=== PATIENT | female | born 1990 ===

== ENCOUNTER 2017-11-17 09:29 | Emergency (ER) | payer OTHER ==
[2017-11-17] MEDS ORDERED: Al Hydrox/Mg Hydrox/Simet LIQ* 30 ML UDC PO ONE (10:00)
[2017-11-17] MEDS ORDERED: Lidocaine 2% VISCOUS* 15 ML UDC PO ONE (10:00)
--- NOTE | 2017-11-17 10:01 | UC ---
Cardiac HPI - HPI Summary HPI Summary: Patient c/o chest heaviness over the past several days---feels this may be related to running out of Albuterol MDI or acid reflux, ---has used TUMS with some relief - History of Current Complaint Chief Complaint: UCChestPain Stated Complaint: chest pain Time Seen by Provider: 11/17/17 09:32 Hx Obtained From: Patient Hx Last Menstrual Period: 11/04/17 Onset/Duration: Gradual Onset, Lasting Days, Still Present Timing: Constant Current Severity: Mild Chest Pain Location: Mid Sternal Aggravating Factor(s): Nothing Alleviating Factor(s): Other - tums with some relief Associated Signs & Symptoms: Positive: Negative - Allergy/Home Medications Allergies/Adverse Reactions: Allergies Allergy/AdvReac Type Severity Reaction Status Date / Time No Known Allergies Allergy Verified 11/17/17 09:50 PMH/Surg Hx/FS Hx/Imm Hx Previously Healthy: No Endocrine History: Dyslipidemia - Surgical History Surgical History: None - Family History Known Family History: Positive: Cardiac Disease, Other - dyslipidemia - Social History Occupation: Employed Full-time Lives: With Family Alcohol Use: Occasionally Substance Use Type: None Smoking Status (MU): Never Smoked Tobacco Review of Systems Constitutional: Negative Skin: Negative Eyes: Negative ENT: Negative Respiratory: Negative Cardiovascular: Chest Pain Gastrointestinal: Negative Genitourinary: Negative Motor: Negative Neurovascular: Negative Musculoskeletal: Negative Neurological: Negative Psychological: Negative Is Patient Immunocompromised?: No All Other Systems Reviewed And Are Negative: Yes Physical Exam Triage Information Reviewed: Yes Appearance: Well-Appearing, No Pain Distress, Well-Nourished Vital Signs: Initial Vital Signs Temp 98.6 F 11/17/17 09:51 Pulse 76 11/17/17 09:51 Resp 18 11/17/17 09:51 BP 124/80 11/17/17 09:51 Pulse Ox 100 11/17/17 09:51 Vital Signs Reviewed: Yes Eye Exam: Normal Eyes: Positive: Conjunctiva Clear ENT Exam: Normal ENT: Positive: Normal ENT inspection, Hearing grossly normal, Pharynx normal, TMs normal, Uvula midline. Negative: Nasal congestion, Trismus, Muffled voice, Hoarse voice, Dental tenderness, Sinus tenderness Dental Exam: Normal Neck exam: Normal Neck: Positive: Supple, Nontender, No Lymphadenopathy Respiratory Exam: Normal Respiratory: Positive: Chest non-tender, Lungs clear, Normal breath sounds, No respiratory distress, No accessory muscle use Cardiovascular Exam: Normal Cardiovascular: Positive: RRR, No Murmur, Pulses Normal, Brisk Capillary Refill Abdominal Exam: Normal Abdomen Description: Positive: Nontender, No Organomegaly, Soft. Negative: CVA Tenderness (R), CVA Tenderness (L), McBurney's Point Tenderness, Peritoneal Signs, Pulsatile Mass Bowel Sounds: Positive: Present Musculoskeletal Exam: Normal Musculoskeletal: Positive: Strength Intact, ROM Intact, No Edema Neurological Exam: Normal Neurological: Positive: Alert, Muscle Tone Normal Psychological Exam: Normal Skin Exam: Normal Diagnostics - EKG Cardiac Rate: NL Cardiac Rhythm: Sinus: Normal Ectopy: PACs ST Segment: Normal Re-Evaluation - Re-Evaluation First Eval Change: Improved - Sx resolved partially with gi cocktail then fully with neb - Assessment/Plan Course Of Treatment: albuterol MDI with Spacer, prilosec, follow with pcp to ED for continued concerns or symptoms - Clinical Impression Provider Diagnoses: GERD, bronchospasm, dyslipidemia by history Discharge - Sign-Out/Discharge Documenting (check all that apply): Discharge/Admit/Transfer - Discharge Plan Condition: Stable Disposition: HOME Prescriptions: Albuterol HFA INHALER* [Ventolin HFA Inhaler*] 2 puff INH Q4H PRN #1 mdi PRN Reason: chest tightness Omeprazole CAP* [Prilosec CAP* 20 MG] 20 mg PO BEDTIME #30 cap. Patient Education Materials: Diet for Stomach Ulcers and Gastritis (ED), Bronchospasm (ED), How to Use a Metered-Dose Inhaler and a Spacer (ED) Referrals: [facility] [Outside] - 1 Week [facility] [place] [facility] [Outside] - 1 Week - Billing Disposition and Condition Condition: STABLE Disposition: Home
[2017-11-17] MEDS ORDERED: Albuterol 2.5 MG/3 ML NEB.SOL* (0.083%) INH ONE (10:34)
[2017-11-17 11:20] VITALS: BP 119/76
== END 2017-11-17 11:20 | disposition home or self-care (01) ==
LOC: UCEAST 09:29
DX: J98.01 Acute bronchospasm (principal); K21.9 Gastro-esophageal reflux disease without esophagitis; E78.5 Hyperlipidemia, unspecified
CPT/HCPCS: 93005; 99203; A9270-GY; G0463

== ENCOUNTER 2018-03-23 08:00 | Emergency (ER) | payer OTHER ==
[2018-03-23 08:08] VITALS: BP 129/96
--- NOTE | 2018-03-23 08:51 | UC ---
Neck Pain HPI - HPI Summary HPI Summary: 28 year old female comes to clinic today with a chief complaint of neck pain. This started yesterday morning she woke up with it. The previous evening she been on a 4 hour bus trip that she had fallen asleep on and she wonders if she had slept wrong on it and caused the problem. No fevers or chills no headache no weakness no numbness. She is taking ibuprofen yesterday and also putting heat on it. This helped some but when she woke up this morning the pain it spread and was worse and she's having difficulty moving her head because the neck hurt. The pain is on either side of the spine and she feels the neck in the upper back muscles are very tight. No recent trauma. - History of Current Complaint Chief Complaint: UCUpperExtremity Stated Complaint: STIFF NECK Time Seen by Provider: 03/23/18 08:37 Hx Last Menstrual Period: 11/04/17 Pain Intensity: 10 - Allergies/Home Medications Allergies/Adverse Reactions: Allergies Allergy/AdvReac Type Severity Reaction Status Date / Time No Known Allergies Allergy Verified 03/23/18 08:08 Home Medications: Home Medications Ibuprofen 800 mg PO 03/23/18 [History] PMH/Surg Hx/FS Hx/Imm Hx Previously Healthy: Yes - Surgical History Surgical History: None - Family History Known Family History: Positive: Cardiac Disease, Other - dyslipidemia Negative: Diabetes - Social History Alcohol Use: Occasionally Substance Use Type: None Smoking Status (MU): Never Smoked Tobacco Review Of Systems Constitutional: Positive: Negative Skin: Positive: Negative Eyes: Positive: Negative ENT: Positive: Negative Respiratory: Positive: Negative Cardiovascular: Positive: Negative Gastrointestinal: Positive: Negative Musculoskeletal: Positive: Other: - SEE HPI Neurological: Positive: Negative Psychological: Positive: Negative All Other Systems Reviewed And Are Negative: Yes Physical Exam Triage Information Reviewed: Yes Appearance: Well-Appearing, Well-Nourished, Pain Distress - MILD Vital Signs: Initial Vital Signs Temp 97.6 F 03/23/18 08:05 Pulse 74 03/23/18 08:05 Resp 18 03/23/18 08:05 BP 129/96 03/23/18 08:05 Pulse Ox 100 03/23/18 08:05 Eye Exam: Normal Eyes: Positive: Conjunctiva Clear ENT: Negative: Nasal congestion Neck: Positive: Other: - Patient is tender to palpation in the neck and the upper thoracic paraspinous muscles. The muscles are tight. Pain with range of motion of the neck. Respiratory: Positive: Lungs clear, Normal breath sounds, No respiratory distress Cardiovascular: Positive: RRR Musculoskeletal Exam: Normal Musculoskeletal: Positive: Strength Intact Neurological Exam: Normal Neurological: Positive: Muscle Tone Normal Psychological Exam: Normal Psychological: Positive: Age Appropriate Behavior Skin Exam: Normal Neck Pain Course/Dx - Course Course Of Treatment: Patient got an ice pack when she came in to clinic. When I saw her she been using the ice pack and she feels like that is improving the pain in her neck. The overall plan is continue the ibuprofen and now use cold instead of heat. Also a prescription for Flexeril to be used as needed. No signs of infection at this time. Since there was no obvious trauma is no imaging done today. We discussed that if she worsen or have any new weakness or numbness or fever she should get reevaluated right away and she agreed. - Differential Dx/Diagnosis Provider Diagnoses: CERVICAL STRAIN Discharge - Sign-Out/Discharge Documenting (check all that apply): Patient Departure All imaging exams completed and their final reports reviewed: No Studies - Discharge Plan Condition: Stable Disposition: HOME Prescriptions: Cyclobenzaprine TAB* [Flexeril 10 MG TAB*] 10 mg PO TID PRN #15 tab MDD 3 PRN Reason: Pain Patient Education Materials: Cervical Strain (ED), Acute Neck Pain (ED) Forms: *Work Release Referrals: [facility] [Outside] Additional Instructions: FOLLOW UP WITH YOUR DOCTOR IF NOT COMPLETELY IMPROVED. GET RECHECKED FOR ANY WORSENING OF YOUR CONDITION; WEAKNESS, NUMBNESS, FEVER, YOU FEEL ILL, PAIN OR QUESTIONS OR CONCERNS. - Billing Disposition and Condition Condition: STABLE Disposition: Home
== END 2018-03-23 09:00 | disposition home or self-care (01) ==
LOC: UCEAST 08:00
DX: S16.1XXA Strain of muscle, fascia and tendon at neck level, initial encounter (principal); X58.XXXA Exposure to other specified factors, initial encounter; Y92.9 Unspecified place or not applicable
CPT/HCPCS: 99212; G0463